=== PATIENT | female | born 2005 | race Caucasian/White ===

== ENCOUNTER 2024-11-26 14:30 | Emergency (ER) | payer BC, SELFPAY ==
[2024-11-26] VITALS (23 sets, daily range): BP systolic 90–135; BP diastolic 44–79; PULSE 118–146; RESP 16–32; TEMP 36.6–36.7; O2SAT 90–100
--- NOTE | 2024-11-26 14:30 | DI.RAD_ITS ---
Exam(s) XR PORTABLE CHEST AP EXAM: XR PORTABLE CHEST AP CLINICAL HISTORY: chest pain SOB aortic stenosis bicuspic regur TECHNIQUE: 2D digital imaging was performed. COMPARISON: No exams were available for comparison FINDINGS: LUNGS: Clear. No pleural abnormality seen. HEART: Normal size. AORTA: Normal diameter. BONES: Unremarkable for age. Soft tissues: Unremarkable. IMPRESSION: No acute findings. DATA REPOSITORY: RADIATION DOSE DELIVERED:
--- NOTE | 2024-11-26 14:30 | RT.EKG_ITS ---
APPROVED REPORT Exam: Resting ECG Reason for Exam: chest pain Patient Location: E HR:127 bpm ECG Measurements Heart Rate 127 AXIS WA 143 P 17 QRSd 82 QRS 43 QT 301 T -1 QTc 438 Conclusion Sinus tachycardia...rate> 99 No STEMI
[2024-11-26 15:23] LABS: Lactate 0.7 mmol/L (0.6-1.4)
--- NOTE | 2024-11-26 15:24 | ED.GENADUL_ITS ---
Discharge Plan Disposition Patient Disposition: Transfer-Acute Inpatient Care Specific Acute Inpt Facility: [facility] Condition: Critical Discharge Details Clinical Impression: Tachycardia, Chest pain, Aortic stenosis, , Near syncope Primary Care Provider: Betzaida Carvajal ED Provider: Salma Scales Home Meds and New Rx's Prescriptions: No Action No Known Home Meds HPI General Mode of arrival: ambulatory . Date/Time Provider Initiated Documentation: 11/26/24 14:33 . Limitations to Documentation: no limitations . Information obtained by: patient and family . HPI Narrative: 19yo F with congenital aortic stenosis with bicuspid regurg, currently 27w gestation, followed by OB and cardiology at [facility], presenting for chest pain. Since 1030 this morning has had crampy substernal chest pain/pressure which radiates down her left arm and up into her left neck. Associated mild shortness of breath. This has been constant since onset. At 1030 she also had lightheadedness and felt like she was going to pass out (but did not); this has since resolved. She also reports bilateral low lumbar back pain radiating into her hips; no upper back pain. Has had similar episodes (CP, SOB, arm/neck pain) this and a few weeks ago was seen at [facility] where she reports having negative CT scans for pulmonary embolism and aortic dissection and no cause for her symptoms was identified. She reports that she has different blood pressures in each arm (not sure which is higher) and that this has been ongoing. The episode today is identical aside from the lightheadedness which is new. + FM. She is otherwise in her usual state of health with no fevers, chills, rash, nausea, vomiting, abdominal pain, LE edema, leg swelling, or other concerns. Related Data Home Medications ?Medication ?Instructions ?Recorded ?Confirmed Unknown [No Known Home Meds] 11/26/24 11/26/24 Allergies Allergy/AdvReac Type Severity Reaction Status Date / Time clarithromycin (From Biaxin) Allergy Severe Anaphylaxis Verified 11/26/24 14:43 morphine Allergy Severe Anaphylaxis Verified 11/26/24 14:43 General Stated Complaint: Chest Pain NITA: 2 Review of Systems Narrative: see HPI Exam Narrative Exam Narrative: General: Alert, well appearing, well nourished, in no acute distress. Head: Normocephalic, atraumatic Neck: Trachea midline, ?Neck supple. ENT: ?MMM.? No oropharygeal lesions or exudate. Cardiac: ?Tachycardiac, regular, no murmurs appreciated Resp: No respiratory distress. CTAB. Abd: ?Gravid, soft, nontender : ?No suprapubic tenderness. No CVA tenderness. Back: Bilateral low lumbar paraspinal tenderness to palpation. Extremities: ?No deformities.? No peripheral edema. Neurologic: GCS 15. ? Moves all extremities freely against gravity Course Vital Signs Vital signs: Vital Signs Temperature 36.6 C 11/26/24 14:38 Pulse 124 H 11/26/24 14:38 Respiratory Rate 18 11/26/24 14:38 Blood Pressure 115/79 11/26/24 14:38 Pulse Oximetry 98 11/26/24 14:38 Temperature 36.6 C 11/26/24 14:38 Temperature Source Oral 11/26/24 14:38 Pulse 124 H 11/26/24 14:38 Respiratory Rate 18 11/26/24 14:38 Blood Pressure 115/79 11/26/24 14:38 Blood Pressure Position Sitting 11/26/24 14:38 Pulse Oximetry 98 11/26/24 14:38 Oxygen Delivery Method Room Air 11/26/24 14:38 Oxygen Flow Rate 0 11/26/24 14:38 Pain Level 8 11/26/24 14:38 Lab/Test Results Lab/Test Results: Laboratory Tests Range/Units 11/26/24 15:13 VBG Lactate (0.6-1.4) mmol/L 0.7 Medical Decision Making 19yo F with congenital aortic stenosis with bicuspid regurg, currently 27w gestation, followed by OB and cardiology at [facility], presenting for chest pain radiating to left arm & neck. She reports that she has different blood pressures in each arm which is not new. Similar episodes (CP, SOB, arm/neck pain) this and a few weeks ago was seen at [facility] where she reports having negative CT scans for pulmonary embolism and aortic dissection and no cause for her symptoms was identified. Episode today similar to prior but now with lightheadedness. Tachycardiac to 124 on arrival, vital signs otherwise reassuring. EKG ST, appropriate intervals, no ST segment or T wave abnormalities to suggest occlusive FL. FHT also slightly tachycardiac for gestastion, 160's. BP left arm 95/51, right arm 122/62. Pt with episode of lightheadedness while sitting, HR up to 130's, BP 90's/50's at that time. Discussed with [facility] cardiology CLUB DIRECTOR Sylvia (OB also aware of patient); pt accepted ED to ED under Dr. Dowell. Labs and CT pending at time of discussion. CT independently reviewed, no clear dissection on my view. Regardless with BP as low as 90/50 here, would hesitate to beta block for rate control. Labs reviewed as below, CBC with mild anemia, CMP with no actionable abnormalities, lipase normal (unlikely pancreatitis), PT & PTT normal, lactate normal, initial troponin normal. On reassessment she is non-toxic appearing, HR 110's-120's and normotensive. Transferred to [facility] via [facility]. Imaging Data Radiologic Study: Imaging: CT Scan Quality:SDOH Health Related Social Needs: No Data to Display Critical Care Time Critical Care Time Critical Care Time: Yes Total Critical Care Time: 33 Attestation: Due to a high probability of clinically significant, life threatening deterioration, the patient required my highest level of preparedness to intervene emergently and I personally spent this critical care time directly and personally managing the patient. This critical care time included obtaining a history; examining the patient; pulse oximetry; ordering and review of studies; arranging urgent treatment with development of a management plan; evaluation of patient's response to treatment; frequent reassessment; and, discussions with other providers. This critical care time was performed to assess and manage the high probability of imminent, life-threatening deterioration that could result in multi-organ failure. It was exclusive of separately billable procedures and treating other patients? [facility] All Active Problems (Updated 11/26/24 @ 16:29 by Salma Scales MD) Near syncope (Acute) (Acute) Aortic stenosis (Chronic) Chest pain (Acute) Tachycardia (Acute) Social History Smoking/Tobacco Use Status: Never Smoking risk assessment performed?: Yes Alcohol Intake: former Substance use type: former substance user
[2024-11-26 15:25] LABS: Abs Immature Grans 0.06 10^3/uL (0.0-0.06); Absolute Basophil Count 0.03 10^3/uL (0.0-0.2); Absolute Eosinophil Count 0.04 10^3/uL (0.0-0.7); Absolute Lymphocyte Count 0.25 10^3/uL (1.2-3.4); Absolute Monocyte Count 0.44 10^3/uL (0.1-0.8); Absolute Neutrophil Count 8.47 10^3/uL (1.2-6.7); Basophils % 0.3 %; Eosinophils % 0.4 %; HGB 10.4 g/dL (11.2-15.7); Immature Grans % 0.6 %; Lymphocytes % 2.7 %; MCH 26.5 pg (27.0-33.0); MCHC 31.5 % (32.0-36.0); MCV 84 fL (80-95); Monocytes % 4.7 %; Neutrophils % 91.3 %; Platelet Count 212 10^3/uL (130-400); RBC 3.92 10^6/uL (3.93-5.22); RDW 14.1 % (11.7-14.6); RDW-SD 43.5 fL; WBC 9.29 10^3/uL (4.4-10.8)
--- NOTE | 2024-11-26 15:30 | DI.CT_ITS ---
Exam(s) CT THORAX CTA EXAM: CT THORAX CTA CLINICAL HISTORY: ? dissection, CP, BP L 95/51, R 122/62. TECHNIQUE: Imaging Protocol: Axial CT angiography was performed with multi-slice acquisition and mu lti-planar and/or 3D reconstructions. Lung Computer Aided Detection (CAD) was utilized. CONTRAST MATERIAL: Intravenous: Omnipaque 350 contrast volume:100 mL COMPARISON: CR XR PORTABLE CHEST AP from 11/26/2024 FINDINGS: There is patient motion artifact. Tracheobronchial tree: Patent where visualized. No bronchiectasis. Pulmonary parenchyma: No consolidation or dominant measurable mass. No architectural distortion. Pulmonary Arteries: Due to the timing of the bolus, there is suboptimal opacification of the pulmonar y artery particularly peripherally. No large central pulmonary embolism is present. Mediastinum and Domitila: No dominant adenopathy or fluid collection. The esophagus is unremarkable. Visualized thyroid gland: Unremarkable. Pleura: No effusion or pneumothorax. Heart: The heart is not dilated. No coronary artery calcifications are seen. No pericardial effusion. Aorta: Thoracic aorta non-dilated. No evidence of dissection. There is some motion artifact. The vis ualized portions of the great vessels are intact and unremarkable. Upper abdomen: Status post cholecystectomy. Soft tissues: Unremarkable. Bones: Within normal limits for the patient's age. IMPRESSION: 1. No evidence of thoracic aortic dissection or aneurysm. 2. Within the limits of the examination, no evidence of a pulmonary embolism is seen. 3. No acute pulmonary process. RADIATION DOSE DELIVERED: 123.52mGy.cm Total DLP 123.52mGy.cm Total DLP DATA REPOSITORY: All CT scans at this facility are submitted to the National Radiology Data Registry (NRDR) Dose Index Registry (DIR) with the [employer] (A[employer]). RADIATION OPTIMIZATION: All CT scans at this facility use at least one of these dose optimization te chniques: automated exposure control; mA and/or kV adjustment per patient size (includes targeted exa ms where dose is matched to clinical indication); or iterative reconstruction.
[2024-11-26 15:38] LABS: INR 0.9 (0.9-1.1); PTT Activated 24.7 sec (20.6-30.2); Prothrombin Time 9.2 sec (9.1-11.1)
[2024-11-26 15:45] LABS: ALT 21 U/L (14-59); AST 17 U/L (15-37); Alkaline Phosphatase 82 U/L (46-116); Anion Gap 9.4 mmol/L (3-11); BUN 3 mg/dL (7-18); Bilirubin, Total 0.77 mg/dL (0.2-1.0); CO2 24.6 mmol/L (21.0-32.0); CREATININE 0.6 mg/dL (0.55-1.02); Calcium 9.2 mg/dL (8.5-10.1); Chloride 102 mmol/L (98-107); Glucose 84 mg/dL (74-106); Lipase 25 U/L (<78); NT-proBNP 45 pg/mL (<300); Potassium 3.9 mmol/L (3.5-5.1); Sodium 136 mmol/L (136-145); Total Protein 7.3 g/dL (6.4-8.2); Troponin I 29 ng/L (<or=51)
[2024-11-26 15:46] LABS: D-Dimer 1376 ng/mlFEU (<500)
[2024-11-26] MEDS: Omnipaque 350 MG/ML 100 ML BTL IJ (16:07)
--- NOTE | 2024-11-26 20:03 | NUR.NOTE ---
Pt results of CTA Thorax and chest xray have been sent over to [facility] because pt has been sent over before the results were done.
== END 2024-11-26 16:51 | disposition short-term general hospital (02) ==
PROVIDERS: Emergency Provider Student in an Organized Health Care Education/Training Program; PCP Family Medicine
DX: O99.412 Diseases of the circulatory system complicating pregnancy, second trimester (principal); R00.0 Tachycardia, unspecified; R07.9 Chest pain, unspecified; Q23.1 Congenital insufficiency of aortic valve; R55 Syncope and collapse; Z3A.27 27 weeks gestation of pregnancy
CPT/HCPCS: 36415; 71275; 80053; 83690; 93005; 99285; 71045; 83605; 83880; 84484; 85025; 85379; 85610; 85730; 93010; J3490

== ENCOUNTER 2025-01-21 17:11 | Emergency (ER) | payer MEDICAID, SELFPAY ==
[2025-01-21] VITALS (25 sets, daily range): BP systolic 111–150; BP diastolic 51–104; PULSE 80–122; RESP 18–20; TEMP 36.6–36.7; O2SAT 96–99
[2025-01-21 18:05] LABS: Abs Immature Grans 0.04 10^3/uL (0.0-0.06); Absolute Basophil Count 0.03 10^3/uL (0.0-0.2); Absolute Eosinophil Count 0.11 10^3/uL (0.0-0.7); Absolute Lymphocyte Count 2.07 10^3/uL (1.2-3.4); Absolute Monocyte Count 0.48 10^3/uL (0.1-0.8); Absolute Neutrophil Count 6.58 10^3/uL (1.2-6.7); Basophils % 0.3 %; Eosinophils % 1.2 %; HCT 30.7 % (36.0-46.0); HGB 9.6 g/dL (11.2-15.7); Immature Grans % 0.4 %; Lymphocytes % 22.2 %; MCH 24.6 pg (27.0-33.0); MCHC 31.3 % (32.0-36.0); MCV 79 fL (80-95); MPV 12.3 fL (8.0-11.0); Monocytes % 5.2 %; Neutrophils % 70.7 %; Platelet Count 189 10^3/uL (130-400); RDW 14.8 % (11.7-14.6); RDW-SD 42.7 fL; WBC 9.31 10^3/uL (4.4-10.8)
[2025-01-21 18:07] LABS: Bilirubin Negative (Negative); Blood Negative (Negative); Clarity Clear (Clear); Glucose Negative (Negative); Ketones Negative (Negative); Leukocyte Esterase Negative (Negative); Nitrite Negative (Negative); Specific Gravity >= 1.030 (1.005-1.025); Urobilinogen 0.2 mg/dL (Up to 0.2); pH 5.5 (5-8)
[2025-01-21 18:19] LABS: ALT 40 U/L (14-59); AST 21 U/L (15-37); Albumin 2.5 g/dL (3.4-5.0); Alkaline Phosphatase 126 U/L (46-116); Anion Gap 12.5 mmol/L (3-11); BUN 7 mg/dL (7-18); Bilirubin, Total 0.5 mg/dL (0.2-1.0); CO2 21.5 mmol/L (21.0-32.0); CREATININE 0.6 mg/dL (0.55-1.02); Calcium 8.6 mg/dL (8.5-10.1); Chloride 106 mmol/L (98-107); Glucose 125 mg/dL (74-106); Magnesium 1.8 mg/dL (1.8-2.4); Potassium 3.4 mmol/L (3.5-5.1); Sodium 140 mmol/L (136-145); Total Protein 6.8 g/dL (6.4-8.2)
[2025-01-21] MEDS: Metoclopramide 10 MG/2 ML VIAL IVP (19:42)
[2025-01-21] MEDS: diphenhydrAMINE 50 MG/ML VIAL 12.5 MG IVP ×2 (19:42→19:54)
--- NOTE | 2025-01-21 22:20 | ED.GENADUL_ITS ---
Discharge Plan Disposition Patient Disposition: Home Condition: Stable Discharge Details Clinical Impression: Headache, Primary Care Provider: Betzaida Carvajal ED Provider: Madalyn Echevreria Home Meds and New Rx's Prescriptions: No Action PNV cmb#95-ferrous fumarate-FA [ Multivitamins] 28 mg iron- 800 mcg tablet 1 tab PO DAILY Discharge Instructions Additional Instructions: Lab work and vital signs are stable right now, keep your follow-up appointment with CHILD CARE CENTER ASSISTANT DIRECTOR. You can take Tylenol, magnesium or Benadryl as needed for headache and make sure you are drinking lots of water HPI General Date/Time Provider Initiated Documentation: 01/21/25 17:52 . Limitations to Documentation: no limitations . Information obtained by: patient . HPI Narrative: 19-year-old female G1, P0 at 35 weeks with history of bicuspid aortic valve and aortic stenosis presents for evaluation of headache, lower abdominal pain, chest tightness and some nausea. Patient is followed by [facility] at [facility]. She was last seen and evaluated there a few days ago for the same symptoms. Workup at that time was unremarkable. She reports that she has not been taking Tylenol for her headache. She says that she has not been sleeping well and has some lower abdominal discomfort and pelvic pressure. She says that she has not been feeling the baby move as much. She contacted her CHILD CARE CENTER ASSISTANT DIRECTOR today who instructed her to come to the nearest facility for further evaluation. Related Data Home Medications ?Medication ?Instructions ?Recorded ?Confirmed vit no.95-ferrous 1 tab PO DAILY 01/21/25 01/21/25 fumarate 28 mg-folic acid 800 mcg tablet ( Multivitamins) Allergies Allergy/AdvReac Type Severity Reaction Status Date / Time clarithromycin (From Biaxin) Allergy Severe Anaphylaxis Verified 01/21/25 17:23 morphine Allergy Severe Anaphylaxis Verified 01/21/25 17:23 General Stated Complaint: CHILD CARE CENTER ASSISTANT DIRECTOR NITA: 3 Exam Narrative Exam Narrative: Review of Systems: All systems reviewed & are unremarkable except as noted in HPI and below Well-developed, no acute distress NCAT PERRL, normal conjunctiva + Murmur Unlabored respiratory effort clear bilaterally, no crackles Gravid abdomen, bedside ultrasound with heart rate 12/03/1975 active movement Extremities w trace edema no focal neurologic deficits Course Vital Signs Vital signs: Vital Signs Temperature 36.7 C 01/21/25 17:18 Pulse 122 H 01/21/25 17:18 Respiratory Rate 20 01/21/25 17:18 Blood Pressure 111/76 01/21/25 17:18 Pulse Oximetry 98 01/21/25 17:18 Temperature 36.6 C 01/21/25 19:31 Pulse 80 01/21/25 21:23 Respiratory Rate 18 01/21/25 21:23 Blood Pressure 132/70 01/21/25 21:23 Blood Pressure Mean 84 01/21/25 21:16 Blood Pressure Position Sitting 01/21/25 17:18 Pulse Oximetry 98 01/21/25 21:23 Oxygen Delivery Method Room Air 01/21/25 17:18 Oxygen Flow Rate 0 01/21/25 17:18 Pain Level 0 01/21/25 21:23 Lab/Test Results Lab/Test Results: Laboratory Tests Range/Units 01/21/25 17:54 WBC (4.4-10.8) 10^3/uL 9.31 RBC (3.93-5.22) 10^6/uL 3.90 L Hgb (11.2-15.7) g/dL 9.6 L Hct (36.0-46.0) % 30.7 L MCV (80-95) fL 79 L MCH (27.0-33.0) pg 24.6 L MCHC (32.0-36.0) % 31.3 L RDW (11.7-14.6) % 14.8 H Plt Count (130-400) 10^3/uL 189 MPV (8.0-11.0) fL 12.3 H Immature Gran % % 0.4 Neutrophils % % 70.7 Lymphocytes % % 22.2 Monocytes % % 5.2 Eosinophils % % 1.2 Basophils % % 0.3 Nucleated RBC % (0.0-0.3) % 0.0 Absolute Neutrophils (1.2-6.7) 10^3/uL 6.58 Absolute Lymphocytes (1.2-3.4) 10^3/uL 2.07 Absolute Monocytes (0.1-0.8) 10^3/uL 0.48 Absolute Eosinophils (0.0-0.7) 10^3/uL 0.11 Absolute Basophils (0.0-0.2) 10^3/uL 0.03 Sodium (136-145) mmol/L 140 Potassium (3.5-5.1) mmol/L 3.4 L Chloride (98-107) mmol/L 106 Carbon Dioxide (21.0-32.0) mmol/L 21.5 Anion Gap (3-11) mmol/L 12.5 H BUN (7-18) mg/dL 7 Creatinine (0.55-1.02) mg/dL 0.6 Est GFR (CKD-EPI 2020) (mL/min/1.73m2) 131.70 Glucose (74-106) mg/dL 125 H Calcium (8.5-10.1) mg/dL 8.6 Magnesium (1.8-2.4) mg/dL 1.8 Total Bilirubin (0.2-1.0) mg/dL 0.5 AST (15-37) U/L 21 ALT (14-59) U/L 40 Alkaline Phosphatase (46-116) U/L 126 H Total Protein (6.4-8.2) g/dL 6.8 Albumin (3.4-5.0) g/dL 2.5 L Urine Color (Yellow) Yellow Urine Clarity (Clear) Clear Urine pH (5-8) 5.5 Ur Specific [place] (1.005-1.025) >= 1.030 H Urine Protein (Neg-Trace) mg/dL Trace Urine Ketones (Negative) mg/dL Negative Urine Blood (Negative) Negative Urine Nitrite (Negative) Negative Urine Bilirubin (Negative) Negative Urine Urobilinogen (Up to 0.2) mg/dL 0.2 Ur Leukocyte Esterase (Negative) Negative Urine Glucose (Negative) mg/dL Negative Medical Decision Making Emergent evaluation of multiple symptoms in the setting of high risk . Patient has aortic stenosis and is at 35 weeks . There are no signs of active labor at this time. Initial differential includes preeclampsia, also consider dehydration, early labor. Lab work was obtained and reviewed. She has stable anemia her LFTs are elevated and she only has trace protein in her urine no significant protein in the area or signs of bacteria in her urine. Patient was given medication for her headache and symptoms seem to be basically resolved after ultrasound demonstrated reassuring examination. I discussed with MFSheryl at [facility] and reviewed the lab work. No indication for emergent transfer, and the patient already has close follow-up scheduled in 3 days. Patient is feeling better after some rest and some guidance regarding treatment of her headache was advised. Strict return precautions discussed and patient will follow-up with OB as scheduled. Quality:SDOH Health Related Social Needs: No Data to Display PFSH All Active Problems (Updated 01/21/25 @ 21:06 by Madalyn Echeverria MD) (Acute) Headache (Acute) Social History Smoking/Tobacco Use Status: Never Smoking risk assessment performed?: Yes Alcohol Intake: former Substance use type: former substance user
== END 2025-01-21 21:23 | disposition home or self-care (01) ==
PROVIDERS: Emergency Provider Emergency Medicine; PCP Family Medicine
DX: R51.9 Headache, unspecified (principal); Z3A.35 35 weeks gestation of pregnancy; Z86.79 Personal history of other diseases of the circulatory system; R10.30 Lower abdominal pain, unspecified; R11.0 Nausea
CPT/HCPCS: 36415; 80053; 96374; 96375; 99284; 81003; 83735; 85025; J1200; J2765